=== PATIENT | female | born 2005 | race American Indian/Alaskan Native ===

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

== ENCOUNTER 2024-11-13 21:27 | Emergency (ER) | payer MEDICAID ==
[2024-11-14 00:44] VITALS: BP 128/85; PULSE 96
== END 2024-11-14 00:40 | disposition home or self-care (01) ==
LOC: DL.ED 21:27
DX: S42.024A Nondisplaced fracture of shaft of right clavicle, initial encounter for closed fracture (principal); S01.81XA Laceration without foreign body of other part of head, initial encounter; J45.909 Unspecified asthma, uncomplicated; Z79.899 Other long term (current) drug therapy; Y04.8XXA Assault by other bodily force, initial encounter
CPT/HCPCS: 12011; 70486; 73030-RT; 81025; 99283; 99284